=== PATIENT | female | born 1950 | race Caucasian/White ===

== ENCOUNTER → 2016-09-04 | Outpatient (CLI) | payer BC, OTHER ==
[~2016-09-04] MED LIST: CIPR-255 PO; IBUP-1050 PO; LEVO50TA6 PO; MULT60CA PO; ONDA4TAB10 SL; OXYC1TAB3 PO; PSYL55.43 PO
[2016-09-04 13:26] LABS: BASO % 1.1 %; BASO ABS # 0.07 K/uL (0-0.2); COMPLETE YES; EOS % 6.1 %; HEMATOCRIT 37.9 % (37-47); IG% 0.3 %; LYMPH % 28.2 %; LYMPH ABS # 1.77 K/uL (1.2-3.4); MEAN CELL VOLUME 88.8 fL (80-100); MEAN CORPUSCULAR HEMOGLOBIN 29.3 pg (25-34); MEAN PLATELET VOLUME 9.9 fL (7.4-10.4); MONO % 9.1 %; NEUT % 55.2 %; PLATELET COUNT 227 K/uL (130-400); RED BLOOD COUNT 4.27 M/uL (4.2-5.4); WHITE BLOOD COUNT 6.27 K/uL (4.8-10.8)
[2016-09-04 13:29] LABS: ALT/SGPT 16 U/L (12-78); BLOOD UREA NITROGEN 15 mg/dl (7-18); BUN/CREATININE RATIO 20.7 (10-20); CALCIUM 9.1 mg/dl (8.5-10.1); CARBON DIOXIDE 25 mmol/L (21-32); CHLORIDE 108 mmol/L (98-107); CHOLESTEROL 182 mg/dl (0-200); CREATININE 0.71 mg/dl (0.60-1.20); GLUCOSE 85 mg/dl (70-99); POTASSIUM 4.1 mmol/L (3.5-5.1); SODIUM 143 mmol/L (136-145); TRIGLYCERIDES 143 mg/dl (0-150); VERY LOW DENSITY LIPOPROT CALC 29 mg/dl
[2016-09-04 13:39] LABS: ALB/GLOB RATIO 1.3 (0.9-2); ALKALINE PHOSPHATASE 104 U/L (45-117); AST/SGOT 13 U/L (15-37); CHOLESTEROL/HDL RATIO 3.3; HDL CHOLESTEROL 56 mg/dl; LDL CHOLESTEROL CALCULATED 97 mg/dl
== END | disposition home or self-care (01) ==
LOC: C.LABMFLN 10:05
PROVIDERS: ATTEND Family Medicine
DX: Z00.00 Encounter for general adult medical examination without abnormal findings (principal); E03.9 Hypothyroidism, unspecified; R00.2 Palpitations; Z13.1 Encounter for screening for diabetes mellitus; Z13.220 Encounter for screening for lipoid disorders

== ENCOUNTER → 2016-11-02 | Outpatient (CLI) | payer BC | END | disposition home or self-care (01) | LOC: C.LABMFLN 14:40 | PROVIDERS: ATTEND Family Medicine | DX: E03.9 Hypothyroidism, unspecified (principal) ==

== ENCOUNTER → 2017-05-03 | Outpatient (CLI) | payer BC ==
[~2017-05-03] MED LIST changes: -ONDA4TAB10 SL; -OXYC1TAB3 PO
== END | disposition home or self-care (01) ==
LOC: C.LABMFLN 14:24
PROVIDERS: ATTEND Physician Assistant
DX: E03.9 Hypothyroidism, unspecified (principal); M89.8X1 Other specified disorders of bone, shoulder; M54.2 Cervicalgia

== ENCOUNTER → 2017-09-03 | Outpatient (CLI) | payer OTHER | END | disposition home or self-care (01) | LOC: C.LABMFLN 09:38 | PROVIDERS: ATTEND Physician Assistant | DX: E03.9 Hypothyroidism, unspecified (principal) ==

== ENCOUNTER 2021-07-06 09:54 | Observation (INO) ==
[2021-07-06] MEDS ORDERED: ASPIRIN CHEW 324 MG PO STA (11:01)
--- NOTE | 2021-07-06 11:03 | XRay Report ---
XR chest 1V portable HISTORY: 71 years-old Female Chest Pain acute atypical chest pain COMPARISON: CT abdomen and pelvis 05/19/2016 TECHNIQUE: Portable AP view of the chest FINDINGS: Cardiomediastinal and hilar silhouettes are within normal limits. There is no pneumothorax, pleural e ffusion, airspace consolidation or overt pulmonary edema. No acute fracture. Degenerative changes of the shoulders and spine. IMPRESSION: No acute process. ACT 112: Negative or not required by law. The above report was generated using voice recognition software. It may contain grammatical, syntax o r spelling errors. Electronically signed by: Marcial Horton M.D. 07/06/2021 11:01 AM
[2021-07-06 11:28] LABS: Alanine Aminotransferase 18 U/L (12-78); Albumin Level 4.1 gm/dl (3.4-5.0); Aspartate Aminotransferase 15 U/L (15-37); BUN Creatinine Ratio 26.7 (10-20); Blood Urea Nitrogen 22 mg/dl (7-18); Calcium 9.1 mg/dl (8.5-10.1); Carbon Dioxide 24 mmol/L (21-32); Chloride 110 mmol/L (98-107); Creatinine Clr Calc Pharmacy 62.2 ml/min; Est GFR (African American) 83.4 ml/min; Est GFR (Non-African American) 71.9 ml/min; Glucose 96 mg/dl (70-99); Lipase 153 U/L (73-393); Potassium 3.9 mmol/L (3.5-5.1); Sodium 141 mmol/L (136-145)
[2021-07-06 11:29] LABS: Basophils # (auto) 0.09 K/uL (0-0.2); Eosinophils # (auto) 0.36 K/uL (0-0.5); Hematocrit (blood only) 46.6 % (37-47); Hemoglobin 15.3 g/dL (12.0-16.0); Immature Granulocytes # (auto) 0.02 K/uL (0.00-0.02); Immature Granulocytes % (auto) 0.2 %; Lymphocytes # (auto) 2.08 K/uL (1.2-3.4); Mean Corpuscular Hemoglobin 30.8 pg (25-34); Mean Corpuscular Hgb Conc 32.8 g/dL (32-36); Mean Corpuscular Volume 93.8 fL (80-100); Mean Platelet Volume 9.9 fL (7.4-10.4); Monocytes # (auto) 0.68 K/uL (0.11-0.59); Monocytes % (auto) 7.5 %; Neutrophils # (auto) 5.82 K/uL (1.4-6.5); Neutrophils % (auto) 64.3 %; Platelet Count 417 K/uL (130-400); RDW Coefficient of Variation 15.1 % (11.5-14.5); RDW Standard Deviation 51.6 fL (36.4-46.3); Red Blood Count 4.97 M/uL (4.2-5.4); White Blood Count 9.05 K/uL (4.8-10.8)
[2021-07-06 11:33] LABS: Albumin Globulin Ratio 1.1 (0.9-2); Alkaline Phosphatase 100 U/L (45-117); Bilirubin,Total 0.4 mg/dl (0.2-1); Globulin 3.8 gm/dl (2.5-4.0); Total Protein 7.9 gm/dl (6.4-8.2); Troponin I < 0.015 ng/ml (0-0.045)
--- NOTE | 2021-07-06 11:40 | Emergency Department Note ---
Impression & Plan Acute coronary syndrome, Chest pain, Angina pectoris, crescendo, Abnormal cardiovascular stress test ED Provider Note NAME: DON PHAN AGE: 71 SEX: F : 1950 ARRIVES VIA: Walk-In INFORMANT: Patient, ED PROVIDER(S): Gustavo Vanegas DO CHIEF COMPLAINT: Chest pain HPI: The patient is a 71-year-old female who presented to the emergency department for an evaluation of chest discomfort. The patient describes anterior chest pain which began approximately 6 months ago. Initially she had only slightly with exertion but now over the last few weeks has been noticing it significantly with exertion and sometimes without exertion. She denies having any fever. She does complain of a slight cough. She denies having any lower extremity swelling or pain. She denies having any difficulty breathing. The patient states she did take the aspirin last evening for the discomfort which did help slightly. The patient states that she called her family doctor this morning because the symptoms and was sent to the emergency department for further evaluation. She currently has no discomfort. She does note that the pain sometimes radiates to her neck and her shoulders. ROS: See above HPI for pertinent positives & negatives. A total of 10 systems reviewed and were otherwise negative. PAST MEDICAL HISTORY: See Below PAST SURGICAL HISTORY: See Below FAMILY HISTORY: See Below SOCIAL HISTORY: See Below HOME MEDICATIONS: See Below ALLERGIES: See Below VITALS: See Below PHYSICAL EXAMINATION: GENERAL: Patient is awake alert in no acute distress patient is resting comfortably and showing no signs of anxiety EYES: The conjunctivae are clear. The pupils are round and reactive. EARS, NOSE, MOUTH AND THROAT: The nose is without any evidence of any deformity. NECK: The neck is nontender and supple. RESPIRATORY: Normal respiratory effort is noted there is no evidence of wheezing rhonchi or rales CARDIOVASCULAR: Regular rate and rhythm noted there no murmurs rubs or gallops normal S1 normal S2. GASTROINTESTINAL: The abdomen is soft. Abdomen is nontender. MUSCULOSKELETAL/EXTREMITIES: There is no evidence of gross deformity full range of motion is noted in the hips and shoulders. SKIN: There is no obvious evidence of any rash. There are no petechiae, pallor or cyanosis noted. NEUROLOGIC: Patient is awake alert and oriented x3 MEDICAL DECISION MAKING: The patient is a 71-year-old female who presented to the emergency department for an evaluation of chest discomfort. The patient started having chest pain with exertion a few weeks ago. She states that she called her primary care physician and was referred to the emergency department. The patient's EKG did not show any definite ischemia and her initial cardiac biomarker was negative. Because of her exertional chest pain which was now starting to worsen with rest and be prolonged I discussed her case with the on-call [facility] service order clerk. The patient was treated with aspirin in the emergency department. She did have a stress test while she was in the emergency department. The stress test appeared to be consistent with possible acute coronary syndrome. She was taken to the cardiac Clothes Drier Repairer. The patient was pain-free in the emergency department. She did describe some chest pain while she was in the cardiac stress test but this was relieved with nitroglycerin. Triage Nursing notes reviewed. Prior medical records reviewed Vital Signs: reviewed and remarkable for elevated blood pressure. Differential diagnosis: Cardiac ischemia, aortic dissection, pulmonary embolism, pneumothorax, pneumonia, pericarditis, myocarditis, esophageal rupture, GERD, cholecystitis, pancreatitis, musculoskeletal, as well as other pathologies. ER treatment provided: See below Diagnostics interpreted by me: ECG: EKG was obtained in the emergency department. My interpretation is normal sinus rhythm at 61 bpm. Nonspecific T wave abnormalities were noted especially in the anterior leads. This was compared to a tracing from December 032013. T wave abnormalities appear new compared to earlier tracing. Cardiac Monitoring: An order was placed for continuous cardiac monitoring. The monitor shows a rate of 74 bpm with sinus rhythm. Laboratory studies: As stated above and show below. Imaging studies: See below Consultation(s): I discussed this case with Dr. Carcamo who is on-call for the [facility] service order clerk group. He will evaluate the patient in the emergency department. Past Med/Surg History Medical History Atypical nevi Cervical lymphadenopathy Hypothyroidism Palpitations Surgical History H/O neck surgery H/O rectocele repair History of hysterectomy Family History Family/Other No problems noted. Father Heart disease Mother Kidney stones Sister Kidney stones Denies family history of Ovarian cancer Prostate cancer Myocardial infarction Breast cancer Colorectal cancer Social History Smoking Status: Never smoker Hx Alcohol Use: Yes Hx Substance Use: No Preferred Language: Guamanian Visual Impairment: No Limitations Hearing Ability: Normal Beliefs That Will Affect Care: None marital status: current occupational status: employed and retired Feels Safe at Home: Yes Childhood Exposure to Second-Hand Smoke: No caffeine: Yes Dental Care, Regularly: Yes Physical Activity Frequency: Daily Seatbelt Use: always Allergies Allergies Allergy/AdvReac Type Severity Reaction Status Date / Time Penicillins Allergy Intermediate HIVES Unverified 07/06/21 10:32 Home Meds Home Medications Medication Instructions Recorded Confirmed vit C 250 mg-vit E 90 mg-zinc 40 1 tab PO BID 07/06/21 07/06/21 mg-copper 1 [id number] capsule (PreserVision AREDS-2) Previous Rx's Medication Instructions Recorded aspirin 81 mg tablet,delayed 81 mg PO DAILY #30 tab 07/06/21 release atorvastatin 40 mg tablet 40 mg PO DAILY #30 tab 07/06/21 clopidogrel 75 mg tablet 75 mg PO DAILY #30 tab 07/06/21 Results & Data (ED) Vital Signs Vital Signs - 24 hr 07/06/21 09:57 07/06/21 10:16 07/06/21 10:20 Temperature 36.9 C Temperature Source Temporal Artery Scan Pulse Rate 67 59 L 69 Pulse Rate [Apical] Pulse Rate from SpO2 Sensor 58 L 69 Pulse Rhythm [Apical] Respiratory Rate 17 17 17 Respiratory Effort / Characteristics Non-Labored Spontaneous Respiratory Depth Normal Blood Pressure 195/100 H Blood Pressure [Left Arm] Blood Pressure Mean 131 Blood Pressure Mean [Left Arm] Pulse Oximetry 99 99 97 Oxygen Delivery Method Room Air Sepsis Recent Fever Within 48 Hours No Sepsis New/Unexplained Change in Mental Status No Sepsis Action Taken by Nursing No Action Required 07/06/21 10:30 07/06/21 10:40 07/06/21 10:50 Temperature Temperature Source Pulse Rate 61 62 62 Pulse Rate [Apical] Pulse Rate from SpO2 Sensor 61 62 63 Pulse Rhythm [Apical] Respiratory Rate 13 20 13 Respiratory Effort / Characteristics Respiratory Depth Blood Pressure Blood Pressure [Left Arm] Blood Pressure Mean Blood Pressure Mean [Left Arm] Pulse Oximetry 99 98 98 Oxygen Delivery Method Sepsis Recent Fever Within 48 Hours Sepsis New/Unexplained Change in Mental Status Sepsis Action Taken by Nursing 07/06/21 11:00 07/06/21 11:01 07/06/21 11:10 Temperature Temperature Source Pulse Rate 96 H 63 Pulse Rate [Apical] Pulse Rate from SpO2 Sensor 87 61 Pulse Rhythm [Apical] Respiratory Rate 19 15 Respiratory Effort / Characteristics Respiratory Depth Blood Pressure Blood Pressure [Left Arm] Blood Pressure Mean Blood Pressure Mean [Left Arm] Pulse Oximetry 98 98 97 Oxygen Delivery Method Room Air Sepsis Recent Fever Within 48 Hours Sepsis New/Unexplained Change in Mental Status Sepsis Action Taken by Nursing 07/06/21 11:14 07/06/21 11:20 07/06/21 11:30 Temperature Temperature Source Pulse Rate 63 59 L Pulse Rate [Apical] 63 Pulse Rate from SpO2 Sensor 64 58 L Pulse Rhythm [Apical] Regular Respiratory Rate 16 15 16 Respiratory Effort / Characteristics Non-Labored Respiratory Depth Normal Blood Pressure 138/100 Blood Pressure [Left Arm] 160/118 H Blood Pressure Mean 112 Blood Pressure Mean [Left Arm] 132 Pulse Oximetry 98 98 97 Oxygen Delivery Method Room Air Sepsis Recent Fever Within 48 Hours Sepsis New/Unexplained Change in Mental Status Sepsis Action Taken by Nursing 07/06/21 11:40 07/06/21 11:50 07/06/21 12:00 Temperature Temperature Source Pulse Rate 61 66 60 Pulse Rate [Apical] Pulse Rate from SpO2 Sensor 61 64 64 Pulse Rhythm [Apical] Respiratory Rate 17 17 13 Respiratory Effort / Characteristics Respiratory Depth Blood Pressure 137/85 Blood Pressure [Left Arm] Blood Pressure Mean 102 Blood Pressure Mean [Left Arm] Pulse Oximetry 96 97 98 Oxygen Delivery Method Sepsis Recent Fever Within 48 Hours Sepsis New/Unexplained Change in Mental Status Sepsis Action Taken by Nursing 07/06/21 12:10 07/06/21 13:21 07/06/21 13:22 Temperature Temperature Source Pulse Rate 61 78 Pulse Rate [Apical] 77 Pulse Rate from SpO2 Sensor 61 Pulse Rhythm [Apical] Regular Respiratory Rate 16 17 16 Respiratory Effort / Characteristics Non-Labored Respiratory Depth Normal Blood Pressure Blood Pressure [Left Arm] 151/103 H Blood Pressure Mean Blood Pressure Mean [Left Arm] 119 Pulse Oximetry 98 97 Oxygen Delivery Method Room Air Sepsis Recent Fever Within 48 Hours Sepsis New/Unexplained Change in Mental Status Sepsis Action Taken by Nursing 07/06/21 13:30 07/06/21 13:40 07/06/21 13:50 Temperature Temperature Source Pulse Rate 68 77 70 Pulse Rate [Apical] Pulse Rate from SpO2 Sensor 69 74 68 Pulse Rhythm [Apical] Respiratory Rate 18 14 18 Respiratory Effort / Characteristics Respiratory Depth Blood Pressure 134/73 Blood Pressure [Left Arm] Blood Pressure Mean 93 Blood Pressure Mean [Left Arm] Pulse Oximetry 98 97 97 Oxygen Delivery Method Sepsis Recent Fever Within 48 Hours Sepsis New/Unexplained Change in Mental Status Sepsis Action Taken by Nursing 07/06/21 14:12 07/06/21 14:20 07/06/21 14:30 Temperature Temperature Source Pulse Rate 62 62 59 L Pulse Rate [Apical] Pulse Rate from SpO2 Sensor Pulse Rhythm [Apical] Respiratory Rate 16 17 12 Respiratory Effort / Characteristics Respiratory Depth Blood Pressure 132/76 Blood Pressure [Left Arm] Blood Pressure Mean 94 Blood Pressure Mean [Left Arm] Pulse Oximetry Oxygen Delivery Method Sepsis Recent Fever Within 48 Hours Sepsis New/Unexplained Change in Mental Status Sepsis Action Taken by Nursing 07/06/21 16:45 07/06/21 17:00 07/06/21 17:15 Temperature Temperature Source Pulse Rate Pulse Rate [Apical] 62 58 L 59 L Pulse Rate from SpO2 Sensor Pulse Rhythm [Apical] Regular Regular Regular Respiratory Rate 20 20 20 Respiratory Effort / Characteristics Non-Labored Spontaneous Non-Labored Spontaneous Non-Labored Spontaneous Respiratory Depth Normal Normal Normal Blood Pressure Blood Pressure [Left Arm] 143/93 H 134/79 130/78 Blood Pressure Mean Blood Pressure Mean [Left Arm] 109 97 95 Pulse Oximetry 97 99 98 Oxygen Delivery Method Room Air Room Air Room Air Sepsis Recent Fever Within 48 Hours Sepsis New/Unexplained Change in Mental Status Sepsis Action Taken by Nursing 07/06/21 17:30 07/06/21 17:45 07/06/21 18:00 Temperature Temperature Source Pulse Rate Pulse Rate [Apical] 71 80 72 Pulse Rate from SpO2 Sensor Pulse Rhythm [Apical] Regular Regular Regular Respiratory Rate 20 20 20 Respiratory Effort / Characteristics Non-Labored Spontaneous Non-Labored Spontaneous Non-Labored Spontaneous Respiratory Depth Normal Normal Normal Blood Pressure Blood Pressure [Left Arm] 125/76 110/71 112/77 Blood Pressure Mean Blood Pressure Mean [Left Arm] 92 84 88 Pulse Oximetry 98 97 98 Oxygen Delivery Method Room Air Room Air Room Air Sepsis Recent Fever Within 48 Hours Sepsis New/Unexplained Change in Mental Status Sepsis Action Taken by Nursing 07/06/21 18:30 07/06/21 19:00 07/06/21 19:30 Temperature Temperature Source Pulse Rate Pulse Rate [Apical] 68 66 70 Pulse Rate from SpO2 Sensor Pulse Rhythm [Apical] Regular Regular Regular Respiratory Rate 20 20 20 Respiratory Effort / Characteristics Non-Labored Spontaneous Non-Labored Spontaneous Non-Labored Spontaneous Respiratory Depth Normal Normal Normal Blood Pressure Blood Pressure [Left Arm] 154/83 H 145/79 H 163/85 H Blood Pressure Mean Blood Pressure Mean [Left Arm] 106 101 111 Pulse Oximetry 98 98 97 Oxygen Delivery Method Room Air Room Air Room Air Sepsis Recent Fever Within 48 Hours Sepsis New/Unexplained Change in Mental Status Sepsis Action Taken by Nursing 07/06/21 20:30 Temperature Temperature Source Pulse Rate Pulse Rate [Apical] 74 Pulse Rate from SpO2 Sensor Pulse Rhythm [Apical] Regular Respiratory Rate 20 Respiratory Effort / Characteristics Non-Labored Spontaneous Respiratory Depth Normal Blood Pressure Blood Pressure [Left Arm] 157/89 H Blood Pressure Mean Blood Pressure Mean [Left Arm] 111 Pulse Oximetry 99 Oxygen Delivery Method Room Air Sepsis Recent Fever Within 48 Hours Sepsis New/Unexplained Change in Mental Status Sepsis Action Taken by [facility] Medications Current Medication List: was personally reviewed by me Laboratory Data Attestation: I reviewed the patient's lab results. Result diagrams: 07/06/21 10:13 07/06/21 10:13 Lab Results 07/06/21 07/06/21 07/06/21 Range/Units 10:13 10:13 11:14 WBC 9.05 (4.8-10.8) K/uL RBC 4.97 (4.2-5.4) M/uL Hgb 15.3 (12.0-16.0) g/dL Hct 46.6 (37-47) % MCV 93.8 (80-100) fL MCH 30.8 (25-34) pg MCHC 32.8 (32-36) g/dL RDW Std Deviation 51.6 H (36.4-46.3) fL RDW Coeff of Bryant 15.1 H (11.5-14.5) % Plt Count 417 H (130-400) K/uL MPV 9.9 (7.4-10.4) fL Immature Gran % (Auto) 0.2 % Neut % (Auto) 64.3 % Lymph % (Auto) 23.0 % Haines % (Auto) 7.5 % Eos % (Auto) 4.0 % Baso % (Auto) 1.0 % Neut # (Auto) 5.82 (1.4-6.5) K/uL Lymph # (Auto) 2.08 (1.2-3.4) K/uL Haines # (Auto) 0.68 H (0.11-0.59) K/uL Eos # (Auto) 0.36 (0-0.5) K/uL Baso # (Auto) 0.09 (0-0.2) K/uL Immature Gran # (Auto) 0.02 (0.00-0.02) K/uL Activ Coag Time Kaolin (94-140) SECONDS Sodium 141 (136-145) mmol/L Potassium 3.9 (3.5-5.1) mmol/L Chloride 110 H (98-107) mmol/L Carbon Dioxide 24 (21-32) mmol/L Anion Gap 8.0 (3-11) BUN 22 H (7-18) mg/dl Creatinine 0.83 (0.6-1.2) mg/dl Est Cr Clr Drug Dosing 62.2 ml/min Est GFR ( Amer) 83.4 ml/min Est GFR (Non-Af Amer) 71.9 ml/min BUN/Creatinine Ratio 26.7 H (10-20) Glucose 96 (70-99) mg/dl Calcium 9.1 (8.5-10.1) mg/dl Total Bilirubin 0.4 (0.2-1) mg/dl AST 15 (15-37) U/L ALT 18 (12-78) U/L Alkaline Phosphatase 100 (45-117) U/L Troponin I < 0.015 (0-0.045) ng/ml Total Protein 7.9 (6.4-8.2) gm/dl Albumin 4.1 (3.4-5.0) gm/dl Globulin 3.8 (2.5-4.0) gm/dl Albumin/Globulin Ratio 1.1 (0.9-2) Lipase 153 (73-393) U/L COVID-19 Eval Order Covid19 at [facility] SARS-CoV-2 (PCR) (Negative) 07/06/21 07/06/21 07/06/21 Range/Units 11:14 16:08 16:25 WBC (4.8-10.8) K/uL RBC (4.2-5.4) M/uL Hgb (12.0-16.0) g/dL Hct (37-47) % MCV (80-100) fL MCH (25-34) pg MCHC (32-36) g/dL RDW Std Deviation (36.4-46.3) fL RDW Coeff of Bryant (11.5-14.5) % Plt Count (130-400) K/uL MPV (7.4-10.4) fL Immature Gran % (Auto) % Neut % (Auto) % Lymph % (Auto) % Haines % (Auto) % Eos % (Auto) % Baso % (Auto) % Neut # (Auto) (1.4-6.5) K/uL Lymph # (Auto) (1.2-3.4) K/uL Haines # (Auto) (0.11-0.59) K/uL Eos # (Auto) (0-0.5) K/uL Baso # (Auto) (0-0.2) K/uL Immature Gran # (Auto) (0.00-0.02) K/uL Activ Coag Time Kaolin 241 H 268 H (94-140) SECONDS Sodium (136-145) mmol/L Potassium (3.5-5.1) mmol/L Chloride (98-107) mmol/L Carbon Dioxide (21-32) mmol/L Anion Gap (3-11) BUN (7-18) mg/dl Creatinine (0.6-1.2) mg/dl Est Cr Clr Drug Dosing ml/min Est GFR ( Amer) ml/min Est GFR (Non-Af Amer) ml/min BUN/Creatinine Ratio (10-20) Glucose (70-99) mg/dl Calcium (8.5-10.1) mg/dl Total Bilirubin (0.2-1) mg/dl AST (15-37) U/L ALT (12-78) U/L Alkaline Phosphatase (45-117) U/L Troponin I (0-0.045) ng/ml Total Protein (6.4-8.2) gm/dl Albumin (3.4-5.0) gm/dl Globulin (2.5-4.0) gm/dl Albumin/Globulin Ratio (0.9-2) Lipase (73-393) U/L COVID-19 Eval Order SARS-CoV-2 (PCR) NEGATIVE (Negative) Administered Medications Discontinued Medications Aspirin (Aspirin Chew 324 Mg) 324 mg PO NOW STA Stop: 07/06/21 11:02 Last Admin: 07/06/21 11:17 Dose: 324 mg Documented by: [id number] Clopidogrel Bisulfate (Clopidogrel Bisulfate 300 Mg Tab) Confirm Administered Dose 600 mg .ROUTE .STK-MED ONE Stop: 07/06/21 16:37 Last Admin: 07/06/21 17:00 Dose: 600 mg Documented by: [id number] Fentanyl Citrate (Fentanyl Citrate 100 Mcg/2 Ml Vial) Confirm Administered Dose 100 mcg .ROUTE .STK-MED ONE Stop: 07/06/21 15:11 Last Admin: 07/06/21 16:58 Dose: 50 mcg Documented by: [id number] Heparin Sodium (Porcine) (Heparin (Porcine) 1000 Unit/Ml 10 Ml (Clothes Drier Repairer Use Only)) Confirm Administered Dose 10,000 units .ROUTE .STK-MED ONE Stop: 07/06/21 15:11 Last Admin: 07/06/21 16:59 Dose: 10,000 units Documented by: [id number] Heparin Sodium (Porcine) (Heparin (Porcine) 1000 Unit/Ml 10 Ml (Clothes Drier Repairer Use Only)) Confirm Administered Dose 10,000 units .ROUTE .STK-MED ONE Stop: 07/06/21 16:13 Last Admin: 07/06/21 17:00 Dose: 3,000 units Documented by: [id number] Heparin Sodium/Sodium Chloride (Heparin In Nss Infusion 1000 Unit/500 Ml (2 U/Ml) Bag) Confirm Administered Dose 3,000 units IV .STK-MED ONE Stop: 07/06/21 15:12 Last Admin: 07/06/21 16:59 Dose: 3,000 units Documented by: [id number] Midazolam HCl (Midazolam Hcl 1 Mg/Ml 2ml Vial) Confirm Administered Dose 2 mg .ROUTE .STK-MED ONE Stop: 07/06/21 15:11 Last Admin: 07/06/21 16:59 Dose: 1 mg Documented by: [id number] Nicardipine HCl (Nicardipine Hcl Inj 2.5 Mg/Ml 10 Ml Amp) Confirm Administered Dose 25 mg .ROUTE .STK-MED ONE Stop: 07/06/21 15:11 Last Admin: 07/06/21 16:59 Dose: 25 mg Documented by: [id number] Nitroglycerin (Nitroglycerin Sl 0.4 Mg/Tab Tab) Confirm Administered Dose 0.4 mg .ROUTE .STK-MED ONE Stop: 07/06/21 13:31 Last Admin: 07/06/21 13:00 Dose: 0.4 mg Documented by: [id number] Nitroglycerin/Dextrose (Nitroglycerin/D5w 100mcg/Ml 20ml Syr) Confirm Administered Dose 2,000 mcg .ROUTE .STK-MED ONE Stop: 07/06/21 15:12 Last Admin: 07/06/21 16:59 Dose: 2,000 mcg Documented by: [id number] Imaging Data Radiologist's Impression: Chest X-Ray 07/06/21 10:50 XR chest 1V portable HISTORY: 71 years-old Female Chest Pain acute atypical chest pain COMPARISON: CT abdomen and pelvis 05/19/2016 TECHNIQUE: Portable AP view of the chest FINDINGS: Cardiomediastinal and hilar silhouettes are within normal limits. There is no pneumothorax, pleural effusion, airspace consolidation or overt pulmonary edema. No acute fracture. Degenerative changes of the shoulders and spine. IMPRESSION: No acute process. ACT 112: Negative or not required by law. The above report was generated using voice recognition software. It may contain grammatical, syntax or spelling errors. Electronically signed by: Marcial Horton M.D. 07/06/2021 11:01 AM Discharge Plan Visit Data Chief Complaint: Chest Pain Stated Complaint: CHEST PAIN ED Provider: Gustavo Vanegas Discharge Problem: Acute coronary syndrome, Chest pain, Angina pectoris, crescendo, Abnormal cardiovascular stress test Condition: Good Discharge Instructions Interventions: ED Discharge Assessment Last Done: 07/06/21 16:12 Prescriptions Prescriptions: New aspirin 81 mg tablet,delayed release (DR/EC) 81 mg PO DAILY Qty: 30 RF: 0 clopidogrel 75 mg tablet 75 mg PO DAILY Qty: 30 RF: 11 atorvastatin 40 mg tablet 40 mg PO DAILY Qty: 30 RF: 11 Continued PreserVision AREDS-2 250-90-40-1 mg Capsule 1 tab PO BID RF: 0
[2021-07-06] MEDS ORDERED: NITROGLYCERIN SL 0.4 MG/TAB TAB ONE (13:30)
--- NOTE | 2021-07-06 14:01 | XCELERA ---
[id number]
[2021-07-06] MEDS ORDERED: HEPARIN (PORCINE) 1000 UNIT/ML 10 ML (CATH LAB USE ONLY) ONE ×2 (15:10→16:12)
[2021-07-06] MEDS ORDERED: MIDAZOLAM HCL 1 MG/ML 2ML VIAL ONE (15:10)
[2021-07-06] MEDS ORDERED: fentaNYL citrate 100 MCG/2 ML VIAL ONE (15:10)
[2021-07-06] MEDS ORDERED: niCARdipine HCL INJ 2.5 MG/ML 10 ML AMP ONE (15:10)
[2021-07-06] MEDS ORDERED: NITROGLYCERIN/D5W 100MCG/ML 20ML SYR ONE (15:11)
[2021-07-06] MEDS ORDERED: CLOPIDOGREL BISULFATE 300 MG TAB ONE (16:36)
--- NOTE | 2021-07-06 16:56 | Post Anesthesia Assessment ---
Date of Service July 06, 2021 Post Sedation Assessment Vital Signs Temp Pulse Pulse Resp BP BP Pulse Ox 07/06/21 16:45 62 20 143/93 H 97 07/06/21 14:30 59 L 12 132/76 07/06/21 14:20 62 17 07/06/21 14:12 62 16 07/06/21 13:50 70 18 97 07/06/21 13:40 77 14 97 07/06/21 13:30 68 18 134/73 98 07/06/21 13:22 77 16 151/103 H 97 07/06/21 13:21 78 17 07/06/21 12:10 61 16 98 07/06/21 12:00 60 13 137/85 98 07/06/21 11:50 66 17 97 07/06/21 11:40 61 17 96 07/06/21 11:30 59 L 16 138/100 97 07/06/21 11:20 63 15 98 07/06/21 11:14 63 16 160/118 H 98 07/06/21 11:10 63 15 97 07/06/21 11:01 98 07/06/21 11:00 96 H 19 98 07/06/21 10:50 62 13 98 07/06/21 10:40 62 20 98 07/06/21 10:30 61 13 99 07/06/21 10:20 69 17 97 07/06/21 10:16 59 L 17 99 07/06/21 09:57 98.4 F 67 17 195/100 H 99 Recovery Score Activity: Moves 4 extremities Respiration: Deep Breath/Cough Circulation: +/-20% PreAnes Value Consciousness: Fully Awake Oxygen Saturation: > 92% On Room Air Post Anesthesia Score: 10 Discharge Sedation Level of Care: Fast Track Phase II Post Sedation Plan On clinical assessment, the patient appears to have tolerated the sedation without complications. Patient is recovering as anticipated. Patient will continue to be monitored by nursing and may be discharged when sedation discharge criteria are met per below protocol. Upon Completions of procedure up to 15 minutes continue every 5 minute vital signs and the P.A.R. score; then discharge to a Phase I or Fast Track to Phase II per the following guidelines: * Discharge Patient to appropriate Phase II area if PAR is 8 or greater or return to pre- procedure baseline. The post - procedure orders will be as directed. * If PAR score is less than 8 or not return to pre-procedure baseline then patient will follow Phase I monitoring till PAR is reached for Phase II. The Phase I may be done in procedure room or may call to secure a Phase I area. * If naloxone or flumazenil are used for reversal, hold in Phase I for continued monitoring from when last reversal dose was given for a minimum of 60 minutes or longer pending the nurse and/or physician discretion of patient condition before discharge to Phase II. Please call the Sedation Physician to re-evaluate and complete post-note for discharge to Phase II area. Do NOT discharge from procedure sedation or Phase 1 until post- sedation adis luation note is complete by procedure /sedation MD Sedation Discharge Instructions to be given to the patient at discharge to home.
--- NOTE | 2021-07-06 16:58 | Cardiac Catheterization ---
[facility] Data: Manager Of Purchasing Cardiac Status Clinical evaluation leading to the procedure CAD Presenation: Positive Stress Test and Stable angina Anginal Classification: CCS III Heart Failure: No Cardiogenic Shock within 24 Hours: No Cardiac Arrest within 24 Hours: No Imaging Studies Past 6 Months: Yes Stress Studies Past 6 Months: Yes Stress Echocardiogram: Yes - Positive and Risk/Extent of Ischemia (High) Diagnostic Physicians Name: Krystian Ji MD Status: Elective Closure Device Percutaneous Entry Location: Radial Closure Device: Radial Band Recommendations: PCI without planned CABG PCI Indication: + Stress Test Lesion Segment Name: Ostial LAD Culprit Artery: Yes Stenosis Prior to Rx (%): 95+ Chronic Total Occlusion: No IVUS: Yes FFR: No Pre-Procedure CHARLI Flow: 2 Previously Treated Lesion: No Lesion Complexity: High/C Lesion Length (mm): 25 Thrombus Present: No Bifurcation Lesion: Yes Guidewire Across Lesion: Stenosis Post-Procedure (%): 0 Post-Procedure CHARLI Fl ow: 3 Devices(s) Deployed: Yes Yes Intraprocedure Events Significant Disection: No Perforation: No Cardiac Cath Procedure Full Procedure Date July 06, 2021 Pre-Procedure Diagnosis Pre-Procedure Diagnosis: Angina and Positive Stress Test AUC Score AUC Score: 8 Post-Procedure Diagnosis Post-Procedure Diagnosis: Severe CAD, Successful PCI and Normal Intracardiac Pressures Procedure(s) Performed Procedure(s) Performed: Coronary Angiography, Left Heart Cath, Drug Eluting Stent and IVUS Supervisor Microwave Krystian Ji MD Musical Therapist(s) Showers Estimated Blood Loss Estimated Blood Loss: 15 Medication(s) Medication(s): Clopidogrel, Fentanyl, Heparin, Lidocaine 1%, Nicardipine, Nitroglycerin and Versed Summary of Findings Indication: Abnormal stress test, acclerating angina Access: 6Fr right radial artery Catheters: [place], EBU 3.5 guide Findings: LM -large caliber, no significant disease LAD -caliber, 95+% ostial stenosis with diffuse severe proximal disease. Medium/distal vessel without significant disease and wraps around apex. Very small D1 with 99% smooth disease. Ramusmedium caliber, diffuse 40 to 50% proximal to mid disease. Circumflex -codominant, large caliber, no significant disease. Large OM 2 with 30% proximal stenosis. RCA - dominant, medium caliber, 30-40% diffuse mid segment disease. Distal vessel/PDA without disease. Right to left collaterals to LAD LVEDP -16 -- PCI -- Antithrombotic therapy: Heparin, clopidogrel Procedure: Left main cannulated with EBU 3.5 guide Galvanizer 50 wire passed across lesion into distal vessel Ostial/proximal LAD lesion predilated with 2.5 compliant balloon Prowater wire placed into ramus [place] IVUS catheter placed in the mid LAD. Pullback revealed severe diffuse mid to proximal disease extending to the ostium, mildly calcified. No significant left main disease Dilated lesion stented with 3.0 x 28 mm Xience drug-eluting stent Repeat IVUS pullback revealed well apposed stent extending to LAD ostium. Stent underexpanded. Stent post-dilated with 3.5 noncompliant balloon IC vasodilators administered for spasm Post procedure CHARIL 3 flow, stent well expanded with minimal residual stenosis and no apparent cardiac complications. Arterial Closure: TR band Summary: 1. Severe single vessel coronary artery disease -95+% ostial LAD with diffuse proximal disease. Robust right to left collaterals to distal LAD. 2. Mild to moderate nonculprit vessel CAD 40 to 50% diffuse proximal to mid ramus 40% diffuse mid RCA 30% proximal OM2 3. Normal intracardiac filling pressure 4. Successful PCI of ostial to mid LAD with single drug-eluting stent (3.0 x 28 mm Xience; postdilated with 3.5 NC). Recommendations: Loaded with clopidogrel 600 mg in cath Continue dual-antiplatelet therapy for at least 1 year ASCVD risk factor modification Consult cardiac Rehab Hemodynamics Rest Ao:: 131/71/118 Final Ao: 128/62/124 LV: 145/16 Recommendations Recommendations: PCI without planned CABG Specimens Specimens: None Radiation Exposure (mGy) 1000 Contrast (mls) 125 Fluids (cc crystalloids) Fluids (cc crystalloids): 125 Drains Drains: None Anesthesia Moderate 1159-4850 Procedural Complication(s) None Disposition Manager Of Purchasing Holding/Recovery I attest to the content of the Intraoperative Record and any orders documented t herein. Any exceptions are noted below. [facility] Card Cath Procedure Codes Cardiac Catheterization Procedure 1: Cardiovascular Cath Procedures: 39812 Coronaries and LHC (+/-LV) Therapeutic Services & Ancillary Proc Procedure 1: Cardiovascular Tx and Anc Procedures: 56271 IV Ultrasound (Coronary or Graft) Moderate Sedation Procedure 1: Sedation/Anesthesia: 57945 Mod Sedation by the same physician;Init15 Min Child Age 5 & Up Procedure 2: Sedation/Anesthesia: 77591 Mod Sedation by the same physician; Ea [id number] Minutes Stenting Procedure 1: Cardiovascular Stent Procedures: 46534 Perc transcatheter placement of intracoronary stent(s), with ang PG Care Time/CCT Total # of Minutes Spent Total Time Spent with Patient: Total time spent is greater than 50% in coordination of care (as documented) at patient's floor/unit and/or counseling patient:
[2021-07-06] MEDS ORDERED: NITROGLYCERIN SL 0.4 MG/TAB TAB SL PRN (20:47)
[2021-07-06] MEDS: ACETAMINOPHEN 325 MG TAB PO PRN (21:04)
[2021-07-07 03:56] VITALS: TEMP 98.1; O2SAT 97
[2021-07-07] MEDS: ACETAMINOPHEN 325 MG TAB PO PRN (05:49)
[2021-07-07 06:11] LABS: Basophils # (auto) 0.09 K/uL (0-0.2); Eosinophils # (auto) 0.36 K/uL (0-0.5); Eosinophils % (auto) 4.1 %; Hematocrit (blood only) 43.2 % (37-47); Hemoglobin 14.3 g/dL (12.0-16.0); Immature Granulocytes # (auto) 0.02 K/uL (0.00-0.02); Immature Granulocytes % (auto) 0.2 %; Lymphocytes # (auto) 1.61 K/uL (1.2-3.4); Lymphocytes % (auto) 18.5 %; Mean Corpuscular Hemoglobin 30.9 pg (25-34); Mean Corpuscular Hgb Conc 33.1 g/dL (32-36); Mean Corpuscular Volume 93.3 fL (80-100); Mean Platelet Volume 9.8 fL (7.4-10.4); Monocytes # (auto) 0.68 K/uL (0.11-0.59); Monocytes % (auto) 7.8 %; Neutrophils # (auto) 5.92 K/uL (1.4-6.5); Neutrophils % (auto) 68.4 %; Platelet Count 349 K/uL (130-400); RDW Coefficient of Variation 15.1 % (11.5-14.5); RDW Standard Deviation 51.1 fL (36.4-46.3); Red Blood Count 4.63 M/uL (4.2-5.4); White Blood Count 8.68 K/uL (4.8-10.8)
[2021-07-07 06:43] LABS: BUN Creatinine Ratio 21.4 (10-20); Calcium 8.9 mg/dl (8.5-10.1); Creatinine Clr Calc Pharmacy 70.7 ml/min; Est GFR (African American) 97.4 ml/min; Potassium 3.9 mmol/L (3.5-5.1)
[2021-07-07 07:51] VITALS: BP 145/78
--- NOTE | 2021-07-07 08:52 | Electrocardiogram Report ---
Test Reason : Blood Pressure : / mmHG Vent. Rate : 061 BPM Atrial Rate : 061 BPM P-R Int : 172 ms QRS Dur : 074 ms QT Int : 392 ms P-R-T Axes : 061 033 060 degrees QTc Int : 394 ms Normal sinus rhythm Nonspecific T wave abnormality Abnormal ECG When compared with ECG of 03-DEC-2013 14:11, T wave inversion now evident in Anterior leads Confirmed by Chuy Carcamo ([id number]) on 07/07/2021 8:52:25 AM Referred By: REFERRED SELF Confirmed By:Chuy Carcamo
[2021-07-07] MEDS ORDERED: CLOPIDOGREL BISULFATE 75 MG TAB PO SCH (09:00)
[2021-07-07] MEDS ORDERED: ASPIRIN 81 MG ECTAB PO SCH (09:00)
[2021-07-07] MEDS ORDERED: ATORVASTATIN 40 MG TAB PO SCH (09:00)
[2021-07-07 09:30] VITALS: PULSE 61
--- NOTE | 2021-07-12 15:28 | History & Physical Report ---
Date of Service July 12, 2021 Assessment & Plan (1) Abnormal cardiovascular stress test: Plan: Discussed procedure including risk, benefits with patient and she is willing to proceed with cardiac catheterization. Further recommendations pending findings. Admission and Anticipated Discharge Date Admission Date: July 06, 2021 History of Present Illness Primary Care Provider: Lauren Mejia PA-C Mrs. Duran is a very pleasant 71-year-old woman here today for cardiac cath. Other medical history includes hypothyroidism, nephrolithiasis. Has been having exertional chest pain for the prior 6 months, significantly worse over the preceding few weeks. Underwent exercise stress echo which showed normal resting function but reproduction of chest pain with exercise induced anterior septal, apical wall akinesis. Decision to proceed urgent cardiac cath Allergies Allergy/AdvReac Type Severity Reaction Status Date / Time Penicillins Allergy Intermediate HIVES Unverified 07/12/21 14:25 Home Medications Medication Instructions Recorded Confirmed Type aspirin 81 mg tablet,delayed 81 mg PO DAILY #30 tab 07/06/21 07/12/21 Rx release atorvastatin 40 mg tablet 40 mg PO DAILY #30 tab 07/06/21 07/12/21 Rx clopidogrel 75 mg tablet 75 mg PO DAILY #30 tab 07/06/21 07/12/21 Rx vit C 250 mg-vit E 90 mg-zinc 40 1 tab PO DAILY cap 07/12/21 07/12/21 History mg-copper 1 [id number] capsule (PreserVision AREDS-2) Past Med/Surg History Medical History Atypical nevi Cervical lymphadenopathy Hypothyroidism Palpitations Surgical History H/O neck surgery H/O rectocele repair History of hysterectomy Family History Family/Other No problems noted. Father Heart disease Mother Kidney stones Sister Kidney stones Denies family history of Ovarian cancer Prostate cancer Myocardial infarction Breast cancer Colorectal cancer Social History Smoking Status: Never smoker Hx Alcohol Use: Yes Hx Substance Use: No Preferred Language: Azeri Communication Ability: Effective Visual Impairment: No Limitations Hearing Ability: Normal Bulk Mail Technician Required: No Beliefs That Will Affect Care: None marital status: Current Living Situation: Spouse current occupational status: employed and retired Feels Safe at Home: Yes Childhood Exposure to Second-Hand Smoke: No caffeine: Yes Dental Care, Regularly: Yes Physical Activity Frequency: Daily Seatbelt Use: always Review of Systems All systems reviewed & are unremarkable except as noted in HPI & below Physical Exam Physical Exam: General: Comfortable HEENT: Sclerae anicteric, Mask in place Lungs: Clear to auscultation bilaterally, no crackles or wheezes Cardiac: Regular rate and rhythm, no murmurs. Vascular: 2+ radial, DP pulses. No bruits Abdomen: Soft, nontender Extremities: Well perfused, no peripheral edema Neuro: Nonfocal Psych: Alert orient x3, normal affect and mood ASA Classification ASA ASA3 Code Status & VTE Plan VTE Prophylaxis Plan VTE Prophylaxis will be ordered: No
--- NOTE | 2021-07-12 15:31 | Discharge Summary ---
Date of Service July 12, 2021 Admission HPI Per Admitting Provider Mrs. Duran is a very pleasant 71-year-old woman here today for cardiac cath. Other medical history includes hypothyroidism, nephrolithiasis. Has been having exertional chest pain for the prior 6 months, significantly worse over the preceding few weeks. Underwent exercise stress echo which showed normal resting function but reproduction of chest pain with exercise induced anterior septal, apical wall akinesis. Decision to proceed with urgent cardiac cath Discharge Data Consultations 07/06/21 13:55 Consult Cardiac Catheterization Stat Procedures Performed Operation Date: 07/06/21 15:00 Actual Procedures s Cineradiography w/Routine Exam - Durga Ji MD p Cath, Left with Cors and Vent - Durga Ji MD s Drug Eluting Stent SGl Vessel - Durga Ji MD s IVUS Coronary Single Vessel - Durga Ji MD Hospital Course (1) CAD (coronary artery disease): Taken for cardiac cath urgently and found to have a 95% ostial LAD stenosis with right to left collaterals to distal LAD. Had mild to moderate nonculprit CAD. Treated with single drug-eluting stent with good angiographic result. Post procedure course complicated by right radial artery access site hematoma and admitted for observation. Electrically stable overnight. Post procedure labs stable. Neurovascularly intact on exam the following day. Discharged home on hospital day 2 on DAPT with aspirin, clopidogrel. Discharge Instructions Home Medications aspirin 81 mg tablet,delayed release 81 mg PO DAILY #30 tab 07/06/21 [Rx Confirmed 07/12/21] atorvastatin 40 mg tablet 40 mg PO DAILY #30 tab 07/06/21 [Rx Confirmed 07/12/21] clopidogrel 75 mg tablet 75 mg PO DAILY #30 tab 07/06/21 [Rx Confirmed 07/12/21] vit C 250 mg-vit E 90 mg-zinc 40 mg-copper 1 [id number] capsule (PreserVision AREDS-2) 1 tab PO DAILY cap 07/12/21 [History Confirmed 07/12/21] Coding Level of Care Code 84708 OBS Care - Discharge Diagnoses CAD (coronary artery disease) I25.10
== END 2021-07-07 09:48 | disposition home or self-care (01) ==
LOC: ED 09:54 → 2S 09:54 → ED 16:12 → 2S 16:12